=== PATIENT | female | born 1935 | race Caucasian/White ===

== ENCOUNTER 2020-04-11 11:00 | Day surgery (SDC) | payer MEDICARE, BC ==
[~2020-04-11] VITALS: Ht 160 cm; Wt 49.5 kg
[2020-04-11] MEDS ORDERED: normal saline 1000ml 1,000 ML IV SCH (11:20)
[2020-04-11] MEDS ORDERED: DIPH25CA83 PO (11:31)
[2020-04-11] MEDS ORDERED: APIX2.5T PO (11:31)
[2020-04-11] MEDS ORDERED: FURO-150 PO (11:31)
[2020-04-11] MEDS ORDERED: ONDA4TAB12 PO (11:31)
[2020-04-11] MEDS ORDERED: ALB0.5UD IH (11:31)
[2020-04-11] MEDS ORDERED: CITA20TA28 PO (11:31)
[2020-04-11] MEDS ORDERED: METO-395 PO (11:31)
[2020-04-11] MEDS ORDERED: ATOR20TA PO (11:31)
[2020-04-11] MEDS ORDERED: PANT20TA3 PO (11:31)
[2020-04-11] MEDS ORDERED: SILV50CR31 TOP (11:32)
[2020-04-11] MEDS ORDERED: ACET-1025 PO (11:32)
[2020-04-11 12:25] VITALS: BP 105/49
[2020-04-11] MEDS ORDERED: fentaNYL/PF 50MCG/1 ML 2ML syringe ONE (13:29)
[2020-04-11] MEDS ORDERED: LIDOcaine 1%/PF 5ML 10 MG/ML VIAL ONE (13:29)
[2020-04-11] MEDS ORDERED: heparin sodium, porcine/PF 100unit/ml 5ML syringe ONE (13:46)
[2020-04-11 15:15] VITALS: BP 114/57
== END 2020-04-11 13:43 | disposition home or self-care (01) ==
LOC: SSTAY O 11:00
PROVIDERS: ATTEND Radiology Vascular & Interventional Radiology
DX: T82.598A Other mechanical complication of other cardiac and vascular devices and implants, initial encounter (principal); I25.10 Atherosclerotic heart disease of native coronary artery without angina pectoris; I48.91 Unspecified atrial fibrillation; E78.5 Hyperlipidemia, unspecified; K21.9 Gastro-esophageal reflux disease without esophagitis; J44.9 Chronic obstructive pulmonary disease, unspecified; I12.9 Hypertensive chronic kidney disease with stage 1 through stage 4 chronic kidney disease, or unspecified chronic kidney disease; N18.3 Chronic kidney disease, stage 3 (moderate); D50.0 Iron deficiency anemia secondary to blood loss (chronic); D51.8 Other vitamin B12 deficiency anemias; E83.42 Hypomagnesemia; Z85.038 Personal history of other malignant neoplasm of large intestine; Z87.891 Personal history of nicotine dependence; Z90.710 Acquired absence of both cervix and uterus; Z95.5 Presence of coronary angioplasty implant and graft; Z98.890 Other specified postprocedural states; Z80.3 Family history of malignant neoplasm of breast; Z80.0 Family history of malignant neoplasm of digestive organs; Z80.8 Family history of malignant neoplasm of other organs or systems; Y83.8 Other surgical procedures as the cause of abnormal reaction of the patient, or of later complication, without mention of misadventure at the time of the procedure; Y92.89 Other specified places as the place of occurrence of the external cause
CPT/HCPCS: 36576; 77001; J1642; J3010; A9270

== ENCOUNTER 2020-10-12 19:34 | Emergency (ER) | payer MEDICARE, BC ==
[~2020-10-12] VITALS: Ht 160 cm; Wt 50.5 kg
[~2020-10-12 19:34] MED LIST: ACET-1025 PO; ALB0.5UD IH; APIX2.5T PO; ATOR20TA PO; CITA20TA28 PO; DIPH25CA83 PO; FURO-150 PO; METO-395 PO; ONDA4TAB12 PO; PANT20TA18 PO; SILV50CR31 TOP
--- NOTE | 2020-10-12 20:30 | NUR ---
UA via straight cath patient preferred this method and stated she was afraid to get up because the prolapse falls out when she stands and right now she is comfortable. Dr Higuera notified and approved female straight cath for urine.
[2020-10-12 20:50] LABS: CLARITY,URINE CLOUDY (Clear); COLOR,URINE YELLOW (Yellow); GLUCOSE, URINE NEGATIVE (Neg); KETONES,URINE NEGATIVE (Neg); LEUKOCYTE ESTERASE ,URINE LARGE (Neg); NITRITES, URINE NEGATIVE (Neg); OCCULT BLOOD,URINE TRACE-INTACT (Neg); PROTEIN,URINE NEGATIVE (Neg); UROBILINOGEN,URINE 0.2 E.U/dL (0.2-1.0)
[2020-10-12 21:01] LABS: BASOPHILS # (AUTO) 0.1 X10'3 (0-0.2); BASOPHILS % (AUTO) 0.6 % (0-1); EOSINOPHILS # (AUTO) 0.1 X10'3 (0-0.9); EOSINOPHILS % (AUTO) 0.6 % (0-6); HEMOGLOBIN 8.8 g/dl (12.0-16.0); LYMPHOCYTES # (AUTO) 0.8 X10'3 (1.1-4.8); MEAN CORPUSCULAR HEMOGLOBIN 32.7 PG (27.0-31.0); MEAN CORPUSCULAR HGB CONC 32.6 g/dL (33.0-36.5); MEAN CORPUSCULAR VOLUME 100.2 FL (78-98); MEAN PLATELET VOLUME 6.8 FL (7.4-10.4); MONOCYTES # (AUTO) 1.3 X10'3 (0-0.9); NEUTROPHILS # (AUTO) 6.2 X10'3 (1.8-7.7); NEUTROPHILS % (AUTO) 73.8 % (42-75); PLATELET COUNT 185 X10'3 (140-440); RED BLOOD COUNT 2.69 X10'6 (4.20-5.60); RED CELL DISTRIBUTION WIDTH 17.9 % (11.5-14.5); WHITE BLOOD COUNT 8.4 X10'3 (4.5-11.0)
--- NOTE | 2020-10-12 21:07 | NUR ---
eyes closed resting, no signs of distress.
[2020-10-12 21:13] LABS: ALANINE AMINOTRANSFERASE 15 U/L (12-78); ALBUMIN 2.1 G/DL (3.4-5.0); ALBUMIN/GLOBULIN RATIO 0.5 (1.1-1.5); ALKALINE PHOSPHATASE 60 IU/L (46-116); ANION GAP 8 (8-16); ASPARTATE AMINO TRANSFERASE 17 U/L (10-37); BILIRUBIN,TOTAL 0.1 MG/DL (0.1-1.0); BLOOD UREA NITROGEN 28 MG/DL (7-18); BUN/CREATININE RATIO 20.4 (6.6-38.0); CALCIUM 8.7 MG/DL (8.5-10.1); CHLORIDE 108 MMOL/L (99-107); CREATININE 1.37 MG/DL (0.40-0.90); GLUCOSE 101 MG/DL (70-104); POTASSIUM 4.5 MMOL/L (3.5-5.1); SODIUM 142 MMOL/L (135-145); TOTAL CARBON DIOXIDE 25.7 MMOL/L (24-32); TOTAL PROTEIN 6.3 G/DL (6.4-8.2); eGFR 37 ML/MIN
[2020-10-12 21:22] LABS: UA COLLECTION TYPE STRAIGHT CATH
[2020-10-12 21:24] LABS: BACTERIA,URINE 3+ /HPF (Neg); MUCUS STRANDS NONE SEEN /LPF (Neg); RBC,URINE 0-2 /HPF (0-2); SQUAMOUS EPITHELIAL CELL,UR NONE SEEN /LPF (FEW); WBC,URINE TNTC /HPF (0-4)
[2020-10-12 21:35] LABS: ANISOCYTOSIS 1+; PLATELET ESTIMATE NORMAL; TOTAL CELLS COUNTED 100
[2020-10-12] MEDS ORDERED: CefTRIAXone/D5W-Rocephin 1gm 50 ML IV ONE (21:45)
[2020-10-12] MEDS ORDERED: SULF1TAB49 PO (22:10)
--- NOTE | 2020-10-12 22:21 | NUR ---
CALLED PT'S SON MARGOTH TO LET HIM KNOW THAT PT IS GOING TO GO HOME AND NEEDS A RIDE
--- NOTE | 2020-10-12 22:48 | NUR ---
PT WAS WS HELPED TO GET DRESSED AND IS AWAITING HER SON TO PICK HER UP
[2020-10-12 23:07] VITALS: BP 101/43
[2020-10-13 06:28] LABS: OCCULT BLOOD STOOL NEGATIVE (Neg)
== END 2020-10-12 23:10 | disposition home or self-care (01) ==
LOC: ER 19:34
DX: K62.3 Rectal prolapse (principal); N39.0 Urinary tract infection, site not specified; I48.91 Unspecified atrial fibrillation; I25.10 Atherosclerotic heart disease of native coronary artery without angina pectoris; I10 Essential (primary) hypertension; I25.2 Old myocardial infarction; F17.200 Nicotine dependence, unspecified, uncomplicated; Z87.442 Personal history of urinary calculi; Z90.710 Acquired absence of both cervix and uterus; Z98.890 Other specified postprocedural states; Z88.5 Allergy status to narcotic agent; Z79.899 Other long term (current) drug therapy; Z79.2 Long term (current) use of antibiotics
CPT/HCPCS: 80053; 81001; 82272; 85007; 85025; 87077; 87088; 96365; 99284; J0696